=== PATIENT | male | born 1950 | race Caucasian/White ===

== ENCOUNTER 2017-04-20 08:26 | Emergency (ER) | payer MEDICARE, OTHER ==
[~2017-04-20] VITALS: Ht 182.9 cm; Wt 88.5 kg
[2017-04-20] MEDS ORDERED: ZESTRIL40 MG PO (08:46)
[2017-04-20] MEDS ORDERED: ASPIR-LOW81 MG PO (08:46)
[2017-04-20] MEDS ORDERED: ALLOPURINOL300 MG PO (08:47)
[2017-04-20] MEDS ORDERED: METOPROLOL SUCC25 MG PO (08:47)
[2017-04-20] MEDS ORDERED: LIPITOR80 MG GT (08:48)
== END 2017-04-20 10:30 | disposition home or self-care (01) ==
LOC: ED 08:26
DX: K29.70 Gastritis, unspecified, without bleeding (principal); R13.10 Dysphagia, unspecified; I10 Essential (primary) hypertension; Z87.891 Personal history of nicotine dependence; Z79.899 Other long term (current) drug therapy; Z79.82 Long term (current) use of aspirin
CPT/HCPCS: 74000; 99283